=== PATIENT | female | born 1930 | race Caucasian/White ===

== ENCOUNTER 2016-08-28 13:46 | Emergency (ER) | payer MEDICARE, BC ==
[2016-08-28 13:53] VITALS: BP 165/76
--- NOTE | 2016-08-28 14:56 | UC ---
Shelton Bates [place], scribed for Lucie Jara MD on 08/28/16 at 1427 . Hypertension HPI - HPI Summary HPI Summary: Patient is a 85 y/o F who presents to the with high blood pressure. She states that her systolic BP has been in the 180s to 190s recently with a home measuring cuff; however, it was 115 yesterday morning. Pt lives in assisted living and has her BP checked every month. Additionally, she checks it 5-6 times per day typically. She denies a headache or dizziness, but reports coldness of the LLE. She states that she is well rested and her PO intake is unchanged. Pts sister reports that pt has been under a lot of stress in the past year. She also had a pacemaker placed in June 2015 due to anxiety attacks. Pt denies any other sx. She states that she is relatively active at home (gardening often). Pt is only visiting and will be leaving town in one week. She denies a hx of TIA and pt does not take ASA. Patients medication reviewed this visit. - History of Current Complaint Chief Complaint: UCGeneralIllness Stated Complaint: BLOOD PRESSURE COMPLAINT Hx Obtained From: Patient, Family/[employer] - Sister Onset/Duration: Gradual Onset, Lasting Days, Still Present Aggravating Factor(s): Nothing Alleviating Factor(s): Nothing Associated Signs And Symptoms: Positive: Negative - Allergies/Home Medications Allergies/Adverse Reactions: Allergies Allergy/AdvReac Type Severity Reaction Status Date / Time No Known Allergies Allergy Verified 08/28/16 14:02 Home Medications: Home Medications Lisinopril TAB* [Prinivil TAB 10 MG*] 40 mg PO DAILY 08/28/16 [History Confirmed 08/28/16] PMH/Surg Hx/FS Hx/Imm Hx Cardiovascular History: Hypertension, Other - pacemaker 2016 for heart block Other Cardiovascular History: pacemaker for ? heart block - Surgical History Surgical History: Yes Surgery Procedure, Year, and Place: Pacemaker - Family History Known Family History: Positive: Cardiac Disease - > 55 - both parents. - Social History Occupation: Retired Lives: Alone - now in a memory care unit. Alcohol Use: Occasionally Substance Use Type: None Smoking Status (MU): Light Every Day Tobacco Smoker Review of Systems Constitutional: Negative Skin: Negative Eyes: Negative ENT: Negative Respiratory: Negative Cardiovascular: Other - High BP. Gastrointestinal: Other - PO intake unchanged. Genitourinary: Negative Motor: Negative Neurovascular: Negative Musculoskeletal: Other: - Coldness of LLE. No edema. Right hand, 3rd finger injury. Neurological: Negative Psychological: Anxious - history of anxiety secondary to health concerns of her spouse. All Other Systems Reviewed And Are Negative: Yes Physical Exam Triage Information Reviewed: Yes Appearance: Well-Appearing, No Pain Distress Vital Signs: Initial Vital Signs Temp 99.1 F 08/28/16 13:53 Pulse 80 08/28/16 13:53 Resp 18 08/28/16 13:53 BP 165/76 08/28/16 13:53 Pulse Ox 97 08/28/16 13:53 Elevated BP noted. Eye Exam: Normal Eyes: Positive: Conjunctiva Clear, Other: - normal fundi ENT: Positive: Pharynx normal Neck: Positive: Supple, Nontender, No Lymphadenopathy, Other: - no carotid bruit Respiratory: Positive: Lungs clear, Normal breath sounds Cardiovascular: Positive: RRR - occasional extra beat, every 15 to 30 seconds., No Murmur Musculoskeletal Exam: Normal Neurological Exam: Normal Neurological: Positive: Alert, Muscle Tone Normal Psychological Exam: Normal Psychological: Positive: Normal Response To Family Hypertension Course/Dx - Course Course Of Treatment: no changes made; advised observation and follow up. continue lisinopril 40mg once daily - Differential Dx/Diagnosis Provider Diagnoses: hypertension, undercontrolled. Discharge - Discharge Plan Condition: Stable Disposition: HOME Patient Education Materials: Hypertension (ED) Additional Instructions: Your systolic/diastolic blood pressure was elevated today (165/76). This is elevated as discussed, but given the lack of symptoms, you will follow up with your primary care doctor upon your return to [place]. You might eventually need a second blood pressure medication. The documentation as recorded by the Shelton albarran Salem accurately reflects the service I personally performed and the decisions made by me, Lucie Jara MD.
== END 2016-08-28 14:55 | disposition home or self-care (01) ==
LOC: UCEAST 13:46
DX: I10 Essential (primary) hypertension (principal); Z95.0 Presence of cardiac pacemaker; F17.210 Nicotine dependence, cigarettes, uncomplicated
CPT/HCPCS: 99201; G0463